=== PATIENT | female | born 1970 | race African-American/Black ===

== ENCOUNTER 2019-07-09 10:39 | Emergency (ER) | payer MEDICAID ==
[~2019-07-09] VITALS: Ht 149.9 cm; Wt 132.4 kg
[2019-07-09 10:46] VITALS: BP 126/96
--- NOTE | 2019-07-09 10:57 | NUR ---
PATIENT AMBUALATED TO BED 8.
--- NOTE | 2019-07-09 11:10 | NUR ---
DR. GUY AT BEDSIDE EVALUATING PATIENT.
--- NOTE | 2019-07-09 11:13 | NUR ---
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 SPO2 99% IN ROOM AIR AT THIS TIME. DENIES CHEST PAIN. DENIES DIZZINESS. DENIES N/V/D. DENIES PAIN AT THIS TIME. PT HAS COUGH WITH PHLEGM. DENIES BLOOD IN COUGH. WHEEZING LUNGS SOUND. PT ATE CHEESE YESTERDAY. PER PERIPHERAL EDP EQUIPMENT OPERATOR, PT HAD ASTHMA ATTACK TODAY AT WORK AND WAS IN ER IN May FOR THE SAME REASON. PT STATES HAVING CHEST TIGHTNESS, FEELS SOB. CONNECTED TO MONITOR . MADE COMFORTABLE. PT SEEN BY ER MED. BREATHING TREATMENT IN THE PROCESS. PMH: ASTHMA, HTN RX: ABILIFY, NORVASC, COGENTIN, DEPOPROVERA, FEROSUL , FLONASE, HYDROCHLOROTHIAZIDE, MOTRIN, LISINOPRIL, NEURONTIN, NYSTATIN, OXYBUTYNIN, PEPCID, POTASSIUM CHLORIDE, REGLAN, SINGULAIR, TRAZODONE, VENTOLIN, VIT D3. ALLERGIC TO DAIRY PRODUCT
[2019-07-09] MEDS ORDERED: ALBUTEROL 0.083% 2.5 MG/3 ML NEBU INH ONE ×2 (11:15→12:10)
[2019-07-09] MEDS ORDERED: predniSONE 20 MG TAB PO ONE (11:15)
[2019-07-09] MEDS ORDERED: IPRATROPIUM 0.02% 0.5 MG/2.5 ML NEBU INH ONE (11:15)
--- NOTE | 2019-07-09 11:48 | NUR ---
BREATHING TREATMENT DONE FOR PT. MEDICATED PT WITH PREDNISONE. STATES FEELING BETTER AND COMFORTABLE AFTER GETTING BREATHING TREATMENT. WILL CONTINUE TO MONITOR PT.
--- NOTE | 2019-07-09 11:57 | NUR ---
PT BP 214/114 , NOTIFIED ABOUT IT. WILL SEE THE PT. PT STABLE. WILL CONTINUE TO MONITOR PT.
--- NOTE | 2019-07-09 12:00 | NUR ---
COVERING PRIMARY RN FOR LUNCH RELIEF. WILL MEDICATE PT FOR BP ORDERED.
[2019-07-09] MEDS ORDERED: amLODIPine 5 MG TAB PO ONE (12:10)
--- NOTE | 2019-07-09 12:25 | NUR ---
FOLLOW UP [facility] THERAPY AND RESPIRATORY DRUGS GIVEN ORDERED
--- NOTE | 2019-07-09 12:35 | NUR ---
REPORT TO EMILY BRODERICK FOR CONTINUATION OF CARE.
[2019-07-09 14:25] VITALS: BP 173/143
--- NOTE | 2019-07-09 14:25 | NUR ---
PT REPORTS IMPROVEMENT IN SOB AND SYMPTOMS. BP TAKEN TWICE 173/143 AND 218/105, PT DENIES CP, LIGHTHEADEDNESS, HEADACHE OR N/V. SPO2 94% on RA, RR [address] GUY MADE AWARE, PER ER MD, PT IS OK FOR DISCHARGE. PT INSTRUCTED TO COME BACK TO ER FOR WORSENING SYMPTOMS.
--- NOTE | 2019-07-09 14:25 | NUR ---
Patient discharged with v/s stable. Written and verbal after care instructions given and explained. Patient alert, oriented and verbalized understanding of instructions. Ambulatory with steady gait. All questions addressed prior to discharge. ID band removed. Patient advised to follow up with PMD. Rx of AEROCHAMBER PLUS WITH MASK, PREDNISONE given. Patient educated on indication of medication including possible reaction and side effects. Opportunity to ask questions provided and answered.
== END 2019-07-09 14:25 | disposition home or self-care (01) ==
LOC: MED 10:39
DX: J45.901 Unspecified asthma with (acute) exacerbation (principal); I10 Essential (primary) hypertension; Z91.011 Allergy to milk products
CPT/HCPCS: 94640; 99283; J7512; J7613; J7644